=== PATIENT | male | born 1945 | race African-American/Black ===

== ENCOUNTER 2016-10-19 14:31 | Emergency (ER) | payer OTHER ==
[~2016-10-19] VITALS: Ht 175.3 cm; Wt 82.0 kg
[2016-10-19 14:33] VITALS: BP 164/96; PULSE 96; RESP 16; TEMP 98.8; O2SAT 96
--- NOTE | 2016-10-19 14:55 | PD ---
HPI . Left hip pain 1 day Chief Complaint: Hip Injury Time Seen by Provider: 14:55 Travel History International Travel<30 days: No Contact w/Intl Traveler<30days: No Traveled to known affect area: No History of Present Illness HPI 71-year-old male who is fairly healthy and active here with complaints of left hip pain for 1 day. Patient tells me that he went into a hot tub and all of a sudden had some intense left-sided hip pain. He thinks that he may have dislocated this joint. Initially the pain was 10/10, now is about a 7/10. He denies any radiation elsewhere. He also reports some left knee pain, but tells me all of his pain is more so located in the left hip. He denies any fall. He has no other complaints. He is accompanied by his . [facility] Past Medical History Medical History: Denies Significant Hx Social History Alcohol Use: No Tobacco Use: No Substance Use: No Allergies-Medications (Allergen,Severity, Reaction): Coded Allergies: No Known Allergies (Unverified , 10/19/16) Reported Meds & Prescriptions Reported Meds & Active Scripts Active Flexeril (Cyclobenzaprine HCl) 5 Mg Tab 5 Mg PO TID Review of Systems General / Constitutional: No: Fever Eyes: No: Visual changes HENT: No: Headaches Cardiovascular: No: Chest Pain or Discomfort Respiratory: No: Shortness of Breath Gastrointestinal: No: Abdominal Pain Genitourinary: No: Dysuria Musculoskeletal: Positive: Pain (left hip pain) Skin: No Rash Neurologic: No: Weakness Psychiatric: No: Depression Endocrine: No: Polydipsia Hematologic/Lymphatic: No: Easy Bruising Physical Exam Narrative GENERAL: AAO x 3, no acute distress, Well-nourished, well-developed patient. SKIN: Warm and dry. No visible rashes or bruising. HEAD: Normocephalic and atraumatic. EYES: No scleral icterus. No injection or drainage. ENT: No nasal drainage noted. Mucous membranes pink. Airway patent. NECK: Supple, trachea midline. No JVD. CARDIOVASCULAR: Regular rate and rhythm without murmurs, gallops, or rubs. RESPIRATORY: Breath sounds equal bilaterally. No accessory muscle use. No rhonchi or rales. GASTROINTESTINAL: visual inspection normal EXTREMITIES: no edema, patient in pain from just slight movement of exam table, but able to move joint BACK: No obvious deformity. NEURO: CN II-12 intact, PSYCH: AAO x 3, normal affect. Data Data Last Documented VS Vital Signs Date Time Temp Pulse Resp B/P Pulse Ox O2 Delivery O2 Flow Rate FiO2 10/19/16 14:33 98.8 96 16 164/96 96 Orders Hip, Uni(Ap&Lat) W Ap Pelvis (10/19/16 15:01) MDM Medical Decision Making Medical Screen Exam Complete: Yes Emergency Medical Condition: Yes Medical Record Reviewed: Yes Differential Diagnosis Bone contusion, hip fracture, hip dislocation, sciatica Narrative Course 71-year-old male here with complaints of left hip pain for 1 day. He really doesn't allow for a good examination. He is able to move this joint. I truly believe he may have some level of sciatica as he reports there is also some pain extending into his knee. X-ray has been ordered to rule out any type of bony abnormality. He does not like medications, therefore we will hold off on any of these for now. Last Impressions Hip and Pelvis X-Ray 10/19/16 1501 Signed Impressions: Service Date/Time: , October 19, 2016 15:16 - CONCLUSION: Normal examination for a patient of this age. Quinn Tomilnson MD Upon further discussion, it does appear patient has sciatica. I offered muscle relaxers. We discussed side effects. He will take Rx home with him as he has to drive. Patient is not fond of taking prescription drugs. We discussed alternative therapies such as acupuncture and chiropractic services. Unfortunately he is visiting from [place] and will return Sunday. If his pain persists, this is something he will look into when he returns home. Patient verbalized understanding of instructions, questions were answered, and thanked me for their care. I advised them if their condition worsens, please return to the nearest emergency room for further care. Diagnosis Primary Impression: Sciatica Qualified Code: M54.32 - Sciatica of left side Patient Instructions: General Instructions Additional Instructions: Please return to emergency department if your symptoms return or worsen. Follow up with your primary care provider. Take medications as prescribed. Muscle relaxers can cause drowsiness. Do not drive, swim or operate heavy machinery while using these medications. Med/Other Pt SpecificInfo: Prescription(s) given Scripts Cyclobenzaprine (Flexeril)5 Mg Tab5 Mg PO TID #21 TAB Prov:Roxann Sim MD 10/19/16 Disposition: 01 DISCHARGE HOME Condition: Stable Avis Novak Oct 19, 2016 14:55
--- NOTE | 2016-10-19 15:23 | RADRPT ---
EXAM DATE/TIME: 10/19/2016 15:16 [facility] COMPARISON: No previous studies available for comparison. INDICATIONS : Joint pain in left hip. MEDICAL HISTORY : None. SURGICAL HISTORY : None. ENCOUNTER: Initial ACUITY: 1 day PAIN SCORE: 8/10 LOCATION: Left Joint space FINDINGS: Examination of the left hip was performed with AP Pelvis. The primary and secondary trabecular patte rn of the femoral neck is intact. The hip joint is of normal width without significant sclerosis or bony hypertrophy. The acetabulum is grossly intact. There some mild degenerative type changes charac teristic of patients age. There is good alignment of the SI joints and pubic symphysis. CONCLUSION: Normal examination for a patient of this age. Quinn Tomlinson MD on October 19, 2016 at 15:21 Board Certified Radiologist. This report was verified electronically.
[2016-10-19] MEDS ORDERED: CYCL5TAB PO (15:43)
== END 2016-10-19 16:15 | disposition home or self-care (01) ==
LOC: NEPK 14:31
DX: M54.32 Sciatica, left side (principal); M25.552 Pain in left hip
CPT/HCPCS: 73502; 99283